=== PATIENT | female | born 1975 | race Caucasian/White ===

== ENCOUNTER 2016-11-07 11:54 | Inpatient (IN) | payer OTHER ==
[~2016-11-07] VITALS: Ht 170.2 cm; Wt 103.9 kg
[2016-11-07] VITALS (9 sets, daily range): BP systolic 100–118; BP diastolic 57–86; PULSE 94–104; TEMP 97.6–98.5
[2016-11-07 12:39] LABS: HEMATOCRIT 45.1 % (37.0-47.0); HEMOGLOBIN 14.2 g/dl (12.5-16.0); MEAN CELL VOLUME 85 fl (80.0-100.0); MEAN CORPUSCULAR HEMOGLOBIN 27 pg (27.0-31.0); MEAN CORPUSCULAR HGB CONC 32 g/dl (33.0-37.0); MEAN PLATELET VOLUME 8.9 fl (7.4-10.4); PLATELET COUNT 512 K/mm3 (130-400); RED BLOOD COUNT 5.33 M/mm3 (4.10-5.30); WHITE BLOOD COUNT 7.2 K/mm3 (4.8-10.8)
[2016-11-07 12:41] LABS: ADD PATHOLOGY DIFF REVIEW NO
[2016-11-07 12:51] LABS: ADJUSTED CALCIUM 9.4 mg/dL (8.4-10.2); ALBUMIN 4.1 gm/dL (3.5-5.0); BILIRUBIN,TOTAL 0.9 mg/dL (0.0-1.0); CALCIUM 9.5 mg/dL (8.4-10.2); CREATININE, serum 1.36 mg/dL (0.52-1.25); POTASSIUM 3.9 mmol/L (3.4-5.0); TOTAL PROTEIN 7.4 gm/dL (6.4-8.2)
[2016-11-07 14:57] LABS: BAND 21 % (0-10); BASOPHIL 1 % (0-2); METAMYELOCYTE 1 % (0-0); NEUTROPHILS 44 % (42.0-75.2); TOTAL CELLS COUNTED 100
[2016-11-07 14:58] LABS: ANISOCYTOSIS 1+
[2016-11-07] MEDS ORDERED: PRILOTC PO (19:29)
[2016-11-07] MEDS ORDERED: ADVIL200 MG PO (19:30)
[2016-11-07] MEDS ORDERED: ALEVE 220MG220 MG PO (19:31)
[2016-11-07 23:46] LABS: PH 5 (5-8); SQUAMOUS EPITHELIAL 0-2 /hpf; URINE APPEARANCE Hazy; URINE BACTERIA None Seen /hpf; URINE BILIRUBIN Negative (NEGATIVE); URINE BLOOD 2+ (NEGATIVE); URINE COLOR Yellow; URINE GLUCOSE Negative (NEGATIVE); URINE KETONE Trace (NEGATIVE); URINE RBC 20-50 /hpf; URINE UROBILINOGEN Negative (NEGATIVE)
[2016-11-08 01:37] VITALS: BP 132/79; PULSE 132; TEMP 99.7
[2016-11-08 05:14] VITALS: BP 131/85; PULSE 129; TEMP 99.3
[2016-11-08 08:30] LABS: HEMATOCRIT 37.4 % (37.0-47.0); MEAN CELL VOLUME 87 fl (80.0-100.0); MEAN CORPUSCULAR HGB CONC 31 g/dl (33.0-37.0); MEAN PLATELET VOLUME 9.1 fl (7.4-10.4); RED BLOOD COUNT 4.28 M/mm3 (4.10-5.30); REDCELL DISTRIBUTION WIDTH-CV 17.1 % (11.5-14.5); WHITE BLOOD COUNT 10.5 K/mm3 (4.8-10.8)
[2016-11-08 08:35] LABS: HEMOGLOBIN 11.5 g/dl (12.5-16.0); MEAN CORPUSCULAR HEMOGLOBIN 27 pg (27.0-31.0); PLATELET COUNT 394 K/mm3 (130-400)
[2016-11-08 08:46] LABS: CREATININE, serum 1.76 mg/dL (0.52-1.25); POTASSIUM 4.9 mmol/L (3.4-5.0)
[2016-11-08 10:52] VITALS: BP 127/85; PULSE 123; TEMP 101.1
[2016-11-08 13:45] VITALS: BP 139/87; PULSE 124; TEMP 98.3
[2016-11-08 17:27] VITALS: BP 158/90; PULSE 121; TEMP 98.7
[2016-11-08 22:08] VITALS: BP 124/80; PULSE 113; TEMP 99
[2016-11-09] VITALS (12 sets, daily range): BP systolic 140–180; BP diastolic 63–108; PULSE 121–142; TEMP 98.4–99
[2016-11-09 05:32] LABS: ADD PATHOLOGY DIFF REVIEW NO
[2016-11-09 05:46] LABS: CALCIUM 8.5 mg/dL (8.4-10.2); CREATININE, serum 1.11 mg/dL (0.52-1.25); POTASSIUM 4.8 mmol/L (3.4-5.0)
[2016-11-09 05:48] LABS: MEAN CELL VOLUME 89 fl (80.0-100.0); MEAN CORPUSCULAR HGB CONC 30 g/dl (33.0-37.0); MEAN PLATELET VOLUME 9.1 fl (7.4-10.4); RED BLOOD COUNT 6.28 M/mm3 (4.10-5.30); REDCELL DISTRIBUTION WIDTH-CV 17.9 % (11.5-14.5); WHITE BLOOD COUNT 6.7 K/mm3 (4.8-10.8)
[2016-11-09 05:49] LABS: HEMATOCRIT 55.9 % (37.0-47.0); HEMOGLOBIN 16.5 g/dl (12.5-16.0); MEAN CORPUSCULAR HEMOGLOBIN 26 pg (27.0-31.0); PLATELET COUNT 193 K/mm3 (130-400)
[2016-11-09 06:33] LABS: BAND 52 % (0-10); NEUTROPHILS 33 % (42.0-75.2); TOTAL CELLS COUNTED 100
[2016-11-10] VITALS (12 sets, daily range): BP systolic 156–184; BP diastolic 88–106; PULSE 72–126; TEMP 97.2–98.7
[2016-11-10 16:17] LABS: MEAN CELL VOLUME 90 fl (80.0-100.0); MEAN CORPUSCULAR HGB CONC 29 g/dl (33.0-37.0); MEAN PLATELET VOLUME 9.3 fl (7.4-10.4); RED BLOOD COUNT 3.56 M/mm3 (4.10-5.30); REDCELL DISTRIBUTION WIDTH-CV 16.4 % (11.5-14.5); WHITE BLOOD COUNT 8.7 K/mm3 (4.8-10.8)
[2016-11-10 16:19] LABS: HEMOGLOBIN 9.4 g/dl (12.5-16.0); MEAN CORPUSCULAR HEMOGLOBIN 26 pg (27.0-31.0); PLATELET COUNT 295 K/mm3 (130-400)
[2016-11-10 16:22] LABS: ADD PATHOLOGY DIFF REVIEW NO; CALCIUM 8.6 mg/dL (8.4-10.2); CREATININE, serum 0.87 mg/dL (0.52-1.25); PHOSPHOROUS 3.1 mg/dL (2.5-4.5)
[2016-11-10 17:00] LABS: BAND 14 % (0-10); EOSINOPHIL 1 % (0-4); NEUTROPHILS 70 % (42.0-75.2); TOTAL CELLS COUNTED 100
[2016-11-10 17:01] LABS: PLATELET ESTIMATE NORMAL (NORMAL)
[2016-11-10 17:02] LABS: ANISOCYTOSIS 1+; HYPOCHROMIA 3+
[2016-11-11] VITALS (922 sets, daily range): BP systolic 156–197; BP diastolic 89–108; PULSE 100–121; TEMP 98.2–101.5; O2SAT 75–100
[2016-11-11 06:35] LABS: MEAN CELL VOLUME 92 fl (80.0-100.0); MEAN CORPUSCULAR HGB CONC 28 g/dl (33.0-37.0); MEAN PLATELET VOLUME 9.8 fl (7.4-10.4); PLATELET COUNT 332 K/mm3 (130-400); RED BLOOD COUNT 3.58 M/mm3 (4.10-5.30); REDCELL DISTRIBUTION WIDTH-CV 16.4 % (11.5-14.5); WHITE BLOOD COUNT 8.5 K/mm3 (4.8-10.8)
[2016-11-11 06:41] LABS: ADJUSTED CALCIUM 9.7 mg/dL (8.4-10.2); ALBUMIN 2.6 gm/dL (3.5-5.0); BILIRUBIN,TOTAL 0.4 mg/dL (0.0-1.0); CALCIUM 8.6 mg/dL (8.4-10.2); CREATININE, serum 0.79 mg/dL (0.52-1.25); POTASSIUM 4.2 mmol/L (3.4-5.0); TOTAL PROTEIN 5.9 gm/dL (6.4-8.2)
[2016-11-11 06:52] LABS: HEMATOCRIT 32.8 % (37.0-47.0); HEMOGLOBIN 9.3 g/dl (12.5-16.0); MEAN CORPUSCULAR HEMOGLOBIN 26 pg (27.0-31.0)
[2016-11-11 06:53] LABS: ADD PATHOLOGY DIFF REVIEW NO
[2016-11-11 07:43] LABS: BAND 25 % (0-10); BASOPHIL 1 % (0-2); EOSINOPHIL 3 % (0-4); NEUTROPHILS 48 % (42.0-75.2); TOTAL CELLS COUNTED 100
[2016-11-11 07:47] LABS: HYPOCHROMIA 3+; PLATELET ESTIMATE NORMAL (NORMAL)
[2016-11-11 07:48] LABS: ANISOCYTOSIS 1+
[2016-11-11 07:54] LABS: ARTERIAL BLD GAS O2 SATURATION 96.4 % (92-100); ARTERIAL BLD GAS TCO2 CT 23.2; ARTERIAL BLOOD GAS BASE EXCESS -4.8 (-2-2); ARTERIAL BLOOD GAS HCO3 21.8 meq/L (22-26); ARTERIAL BLOOD GAS PO2 98.9 mmHg (80-100); ARTERIAL BLOOD GAS pH 7.28 (7.35-7.45); OXYHEMOGLOBIN 95.3 %
[2016-11-11 07:56] LABS: ATS? YES
[2016-11-11 09:40] LABS: CALCIUM 8.6 mg/dL (8.4-10.2); CREATININE, serum 0.75 mg/dL (0.52-1.25); POTASSIUM 4.1 mmol/L (3.4-5.0)
[2016-11-11 09:48] LABS: AMPHETAMINE URINE NEGATIVE; BARBITURATES URINE NEGATIVE; BENZODIAZEPINES URINE NEGATIVE; BUPRENORPHINE URINE NEGATIVE; METHADONE URINE NEGATIVE; OPIATES URINE NEGATIVE; OXYCODONE URINE NEGATIVE; PHENCYCLIDINE URINE NEGATIVE; PROPOXYPHENE URINE NEGATIVE; THC CANNABINOIDS URINE NEGATIVE
[2016-11-11 14:12] LABS: ALLEN TEST YES; ALLENS TEST RESULT PASS; ARTERIAL BLD GAS O2 SATURATION 96.5 % (92-100); ARTERIAL BLD GAS TCO2 CT 23.6; ARTERIAL BLOOD GAS BASE EXCESS -2.4 (-2-2); ARTERIAL BLOOD GAS HCO3 22.4 meq/L (22-26); ARTERIAL BLOOD GAS PO2 95.9 mmHg (80-100); ARTERIAL BLOOD GAS pH 7.38 (7.35-7.45); ATS? YES; OXYHEMOGLOBIN 95.9 %
[2016-11-11 19:43] LABS: ARTERIAL BLD GAS O2 SATURATION 95.4 % (92-100); ARTERIAL BLOOD GAS HCO3 25.9 meq/L (22-26); ARTERIAL BLOOD GAS PHT 7.46 C (7.35-7.45); ARTERIAL BLOOD GAS PO2 76.5 mmHg (80-100); ARTERIAL BLOOD GAS PO2T 76.5 (80-100); ARTERIAL BLOOD GAS pH 7.46 (7.35-7.45); OXYHEMOGLOBIN 94.4 %
[2016-11-11 19:44] LABS: ALLEN TEST YES; ALLENS TEST RESULT PASS; ATS? YES
[2016-11-11 20:46] LABS: ADJUSTED CALCIUM 9.6 mg/dL (8.4-10.2); ALBUMIN 2.6 gm/dL (3.5-5.0); BILIRUBIN,TOTAL 0.5 mg/dL (0.0-1.0); CALCIUM 8.5 mg/dL (8.4-10.2); CREATININE, serum 0.83 mg/dL (0.52-1.25); MAGNESIUM 1.9 mg/dL (1.6-2.3); PHOSPHOROUS 2.5 mg/dL (2.5-4.5); POTASSIUM 3.4 mmol/L (3.4-5.0)
[2016-11-11 22:06] LABS: PH 6 (5-8); SQUAMOUS EPITHELIAL 0-2 /hpf; URINE APPEARANCE Hazy; URINE BACTERIA None Seen /hpf; URINE BILIRUBIN Negative (NEGATIVE); URINE BLOOD 3+ (NEGATIVE); URINE COLOR Yellow; URINE GLUCOSE Negative (NEGATIVE); URINE KETONE Negative (NEGATIVE); URINE RBC >50 /hpf; URINE UROBILINOGEN Negative (NEGATIVE); URINE WBC 0-2 /hpf
[2016-11-12] VITALS (1397 sets, daily range): BP systolic 135–170; BP diastolic 86–100; PULSE 110–125; TEMP 98.2–101; O2SAT 79–100
[2016-11-12 04:15] LABS: ARTERIAL BLD GAS O2 SATURATION 96.4 % (92-100); ARTERIAL BLD GAS TCO2 CT 27.4; ARTERIAL BLOOD GAS BASE EXCESS 3.2 (-2-2); ARTERIAL BLOOD GAS HCO3 26.3 meq/L (22-26); ARTERIAL BLOOD GAS PO2 81.7 mmHg (80-100); ARTERIAL BLOOD GAS PO2T 81.7 (80-100); OXYHEMOGLOBIN 95.8 %
[2016-11-12 04:16] LABS: ALLEN TEST YES; ALLENS TEST RESULT PASS; ATS? YES
[2016-11-12 06:45] LABS: INR 1.4 (0.8-3.0); MEAN CELL VOLUME 88 fl (80.0-100.0); MEAN CORPUSCULAR HGB CONC 30 g/dl (33.0-37.0); MEAN PLATELET VOLUME 9.8 fl (7.4-10.4); PLATELET COUNT 334 K/mm3 (130-400); PROTHROMBIN TIME 15.2 SECONDS (9.7-12.8); RED BLOOD COUNT 3.68 M/mm3 (4.10-5.30); REDCELL DISTRIBUTION WIDTH-CV 16.3 % (11.5-14.5); WHITE BLOOD COUNT 6.9 K/mm3 (4.8-10.8)
[2016-11-12 06:46] LABS: HEMATOCRIT 32.4 % (37.0-47.0); HEMOGLOBIN 9.6 g/dl (12.5-16.0); MEAN CORPUSCULAR HEMOGLOBIN 26 pg (27.0-31.0)
[2016-11-12 06:47] LABS: ADD PATHOLOGY DIFF REVIEW NO
[2016-11-12 06:59] LABS: CALCIUM 8.8 mg/dL (8.4-10.2); CREATININE, serum 0.81 mg/dL (0.52-1.25); MAGNESIUM 1.8 mg/dL (1.6-2.3); PHOSPHOROUS 2.7 mg/dL (2.5-4.5); POTASSIUM 3.1 mmol/L (3.4-5.0)
[2016-11-12 07:29] LABS: BAND 16 % (0-10); EOSINOPHIL 1 % (0-4); NEUTROPHILS 60 % (42.0-75.2); TOTAL CELLS COUNTED 100
[2016-11-12 07:31] LABS: HYPOCHROMIA 3+
[2016-11-12 07:32] LABS: ANISOCYTOSIS 1+; PLATELET ESTIMATE NORMAL (NORMAL)
[2016-11-13] VITALS (1358 sets, daily range): BP systolic 122–140; BP diastolic 77–89; PULSE 110–121; TEMP 97.2–101.2; O2SAT 62–100
[2016-11-13 04:50] LABS: ADD PATHOLOGY DIFF REVIEW NO
[2016-11-13 04:53] LABS: MEAN CELL VOLUME 87 fl (80.0-100.0); MEAN CORPUSCULAR HGB CONC 30 g/dl (33.0-37.0); MEAN PLATELET VOLUME 9.5 fl (7.4-10.4); PLATELET COUNT 343 K/mm3 (130-400); RED BLOOD COUNT 3.79 M/mm3 (4.10-5.30); REDCELL DISTRIBUTION WIDTH-CV 16.5 % (11.5-14.5); WHITE BLOOD COUNT 7.4 K/mm3 (4.8-10.8)
[2016-11-13 05:15] LABS: INR 1.4 (0.8-3.0); PROTHROMBIN TIME 15.6 SECONDS (9.7-12.8)
[2016-11-13 05:16] LABS: ARTERIAL BLD GAS O2 SATURATION 91.9 % (92-100); ARTERIAL BLD GAS TCO2 CT 28.8; ARTERIAL BLOOD GAS BASE EXCESS 3.1 (-2-2); ARTERIAL BLOOD GAS HCO3 27.6 meq/L (22-26); ARTERIAL BLOOD GAS PHT 7.44 C (7.35-7.45); ARTERIAL BLOOD GAS PO2 67.4 mmHg (80-100); ARTERIAL BLOOD GAS PO2T 67.4 (80-100); ARTERIAL BLOOD GAS pH 7.44 (7.35-7.45); OXYHEMOGLOBIN 91.4 %
[2016-11-13 05:17] LABS: HEMATOCRIT 32.8 % (37.0-47.0); HEMOGLOBIN 9.9 g/dl (12.5-16.0); MEAN CORPUSCULAR HEMOGLOBIN 26 pg (27.0-31.0)
[2016-11-13 05:18] LABS: ALLEN TEST YES; ALLENS TEST RESULT PASS; ATS? YES
[2016-11-13 05:23] LABS: ADJUSTED CALCIUM 9.8 mg/dL (8.4-10.2); ALBUMIN 2.7 gm/dL (3.5-5.0); BILIRUBIN,TOTAL 0.4 mg/dL (0.0-1.0); CALCIUM 8.8 mg/dL (8.4-10.2); CREATININE, serum 0.85 mg/dL (0.52-1.25); MAGNESIUM 1.9 mg/dL (1.6-2.3); PHOSPHOROUS 4.8 mg/dL (2.5-4.5); POTASSIUM 3.5 mmol/L (3.4-5.0); TOTAL PROTEIN 6.6 gm/dL (6.4-8.2)
[2016-11-13 06:29] LABS: BAND 30 % (0-10); EOSINOPHIL 1 % (0-4); METAMYELOCYTE 2 % (0-0); NEUTROPHILS 42 % (42.0-75.2); PLATELET ESTIMATE NORMAL (NORMAL); TOTAL CELLS COUNTED 100
[2016-11-13 06:30] LABS: ROULEAUX 1+
[2016-11-13 17:36] LABS: PH 7 (5-8); SQUAMOUS EPITHELIAL 0-2 /hpf; URINE APPEARANCE Clear; URINE BACTERIA None Seen /hpf; URINE BILIRUBIN Negative (NEGATIVE); URINE BLOOD Negative (NEGATIVE); URINE COLOR Yellow; URINE GLUCOSE Negative (NEGATIVE); URINE KETONE Negative (NEGATIVE); URINE UROBILINOGEN Negative (NEGATIVE)
[2016-11-14] VITALS (1338 sets, daily range): BP systolic 139–164; BP diastolic 80–99; PULSE 113–122; TEMP 97.3–101.5; O2SAT 82–100
[2016-11-14 05:59] LABS: CALCIUM 8.2 mg/dL (8.4-10.2); CREATININE, serum 0.75 mg/dL (0.52-1.25); MAGNESIUM 1.9 mg/dL (1.6-2.3); PHOSPHOROUS 4.2 mg/dL (2.5-4.5); POTASSIUM 3.9 mmol/L (3.4-5.0)
[2016-11-14 10:06] LABS: MEAN CELL VOLUME 88 fl (80.0-100.0); MEAN CORPUSCULAR HGB CONC 30 g/dl (33.0-37.0); MEAN PLATELET VOLUME 10.7 fl (7.4-10.4); PLATELET COUNT 351 K/mm3 (130-400); RED BLOOD COUNT 3.43 M/mm3 (4.10-5.30); WHITE BLOOD COUNT 7.8 K/mm3 (4.8-10.8)
[2016-11-14 10:08] LABS: HEMATOCRIT 30.3 % (37.0-47.0); MEAN CORPUSCULAR HEMOGLOBIN 26 pg (27.0-31.0)
[2016-11-14 10:09] LABS: ADD PATHOLOGY DIFF REVIEW NO
[2016-11-14 10:40] LABS: INR 1.3 (0.8-3.0)
[2016-11-14 14:52] LABS: BAND 49 % (0-10); EOSINOPHIL 3 % (0-4); METAMYELOCYTE 2 % (0-0); NEUTROPHILS 25 % (42.0-75.2); PLATELET ESTIMATE NORMAL (NORMAL); TOTAL CELLS COUNTED 100
[2016-11-14 14:55] LABS: HYPOCHROMIA 2+
[2016-11-14 14:56] LABS: ANISOCYTOSIS 1+
[2016-11-14 14:57] LABS: POLYCHROMASIA 1+
[2016-11-14 14:59] LABS: TOXIC GRANULATION PRESENT
[2016-11-15] VITALS (924 sets, daily range): BP systolic 135–160; BP diastolic 74–93; PULSE 110–134; TEMP 97.4–101.6; O2SAT 68–100
[2016-11-15 05:19] LABS: CALCIUM 8.3 mg/dL (8.4-10.2); CREATININE, serum 0.64 mg/dL (0.52-1.25); MAGNESIUM 2.1 mg/dL (1.6-2.3); POTASSIUM 4.3 mmol/L (3.4-5.0)
[2016-11-15 09:49] LABS: HEMATOCRIT 29.6 % (37.0-47.0); HEMOGLOBIN 8.7 g/dl (12.5-16.0); MEAN CELL VOLUME 88 fl (80.0-100.0); MEAN CORPUSCULAR HEMOGLOBIN 26 pg (27.0-31.0); MEAN CORPUSCULAR HGB CONC 29 g/dl (33.0-37.0); MEAN PLATELET VOLUME 11.1 fl (7.4-10.4); PLATELET COUNT 385 K/mm3 (130-400); RED BLOOD COUNT 3.37 M/mm3 (4.10-5.30); REDCELL DISTRIBUTION WIDTH-CV 16.9 % (11.5-14.5); WHITE BLOOD COUNT 8.8 K/mm3 (4.8-10.8)
[2016-11-15 09:50] LABS: ADD PATHOLOGY DIFF REVIEW NO
[2016-11-15 10:26] LABS: BAND 30 % (0-10); EOSINOPHIL 3 % (0-4); NEUTROPHILS 53 % (42.0-75.2); TOTAL CELLS COUNTED 100
[2016-11-15 10:29] LABS: HYPOCHROMIA 3+
[2016-11-15 10:31] LABS: ANISOCYTOSIS 1+; PLATELET ESTIMATE NORMAL (NORMAL)
[2016-11-16] VITALS (432 sets, daily range): BP systolic 130–153; BP diastolic 78–92; PULSE 110–118; TEMP 98.6–103.1; O2SAT 75–100
[2016-11-16 09:29] LABS: MEAN CELL VOLUME 85 fl (80.0-100.0); MEAN CORPUSCULAR HGB CONC 31 g/dl (33.0-37.0); MEAN PLATELET VOLUME 10.2 fl (7.4-10.4); PLATELET COUNT 402 K/mm3 (130-400); RED BLOOD COUNT 3.05 M/mm3 (4.10-5.30); REDCELL DISTRIBUTION WIDTH-CV 16.9 % (11.5-14.5); WHITE BLOOD COUNT 9.8 K/mm3 (4.8-10.8)
[2016-11-16 09:30] LABS: HEMATOCRIT 25.9 % (37.0-47.0); HEMOGLOBIN 7.9 g/dl (12.5-16.0); MEAN CORPUSCULAR HEMOGLOBIN 26 pg (27.0-31.0)
[2016-11-16 09:31] LABS: ADD PATHOLOGY DIFF REVIEW NO
[2016-11-16 09:44] LABS: CREATININE, serum 0.59 mg/dL (0.52-1.25); POTASSIUM 3.5 mmol/L (3.4-5.0)
[2016-11-16 10:07] LABS: BAND 12 % (0-10); EOSINOPHIL 1 % (0-4); NEUTROPHILS 66 % (42.0-75.2); PLATELET ESTIMATE NORMAL (NORMAL); POLYCHROMASIA 1+; TOTAL CELLS COUNTED 100
[2016-11-17] VITALS (476 sets, daily range): BP systolic 122–154; BP diastolic 69–95; PULSE 97–127; TEMP 98.6–100.7; O2SAT 51–99
[2016-11-17 04:18] LABS: MEAN CELL VOLUME 83 fl (80.0-100.0); MEAN CORPUSCULAR HGB CONC 31 g/dl (33.0-37.0); MEAN PLATELET VOLUME 10.6 fl (7.4-10.4); PLATELET COUNT 499 K/mm3 (130-400); RED BLOOD COUNT 3.06 M/mm3 (4.10-5.30); REDCELL DISTRIBUTION WIDTH-CV 16.6 % (11.5-14.5); WHITE BLOOD COUNT 9.8 K/mm3 (4.8-10.8)
[2016-11-17 04:22] LABS: ADD PATHOLOGY DIFF REVIEW NO; HEMATOCRIT 25.5 % (37.0-47.0); HEMOGLOBIN 7.8 g/dl (12.5-16.0); MEAN CORPUSCULAR HEMOGLOBIN 25 pg (27.0-31.0)
[2016-11-17 04:33] LABS: ADJUSTED CALCIUM 9.2 mg/dL (8.4-10.2); ALBUMIN 2.6 gm/dL (3.5-5.0); BILIRUBIN,TOTAL 0.3 mg/dL (0.0-1.0); CALCIUM 8.1 mg/dL (8.4-10.2); CREATININE, serum 0.56 mg/dL (0.52-1.25); MAGNESIUM 1.8 mg/dL (1.6-2.3); PHOSPHOROUS 2.8 mg/dL (2.5-4.5); POTASSIUM 3.6 mmol/L (3.4-5.0); TOTAL PROTEIN 6.4 gm/dL (6.4-8.2)
[2016-11-17 05:13] LABS: BAND 20 % (0-10); EOSINOPHIL 1 % (0-4); NEUTROPHILS 55 % (42.0-75.2); TOTAL CELLS COUNTED 100
[2016-11-17 10:32] LABS: INR 1.3 (0.8-3.0)
[2016-11-17 14:37] LABS: GLUCOSE,PLEURAL FLUID 109 mg/dL
[2016-11-17 14:58] LABS: PLEURAL FLUID - PMN 33.6 % (0-25)
[2016-11-17 14:59] LABS: PLEURAL FLUID RIGHT SIDE; PLEURAL FLUID COLOR PINK
[2016-11-17 15:00] LABS: PLEURAL FLUID APPEARANCE HAZY
[2016-11-17 15:53] LABS: CALCIUM 7.7 mg/dL (8.4-10.2); CREATININE, serum 0.57 mg/dL (0.52-1.25); POTASSIUM 3.9 mmol/L (3.4-5.0)
[2016-11-18] VITALS (1245 sets, daily range): BP systolic 107–143; BP diastolic 63–95; PULSE 102–123; TEMP 97.9–99.3; O2SAT 55–100
[2016-11-18 08:58] LABS: CALCIUM 7.7 mg/dL (8.4-10.2); CREATININE, serum 0.65 mg/dL (0.52-1.25); POTASSIUM 3.6 mmol/L (3.4-5.0)
[2016-11-18 09:19] LABS: VANCOMYCIN TROUGH 17.93 ug/mL (7.00-20.00)
[2016-11-18 18:34] LABS: CALCIUM 7.1 mg/dL (8.4-10.2); CREATININE, serum 0.63 mg/dL (0.52-1.25)
[2016-11-19] VITALS (1357 sets, daily range): BP systolic 99–128; BP diastolic 66–78; PULSE 110–123; TEMP 97.6–99; O2SAT 49–100
[2016-11-19 08:00] LABS: ADJUSTED CALCIUM 8.8 mg/dL (8.4-10.2); ALBUMIN 2.9 gm/dL (3.5-5.0); BILIRUBIN,TOTAL 0.5 mg/dL (0.0-1.0); CALCIUM 7.9 mg/dL (8.4-10.2); CREATININE, serum 0.75 mg/dL (0.52-1.25); MAGNESIUM 1.8 mg/dL (1.6-2.3); PHOSPHOROUS 5.6 mg/dL (2.5-4.5); TOTAL PROTEIN 7.1 gm/dL (6.4-8.2)
[2016-11-19 08:21] LABS: POTASSIUM 2.9 mmol/L (3.4-5.0)
[2016-11-19 09:57] LABS: VENOUS BLOOD GAS BE 15.1 (-4-4)
[2016-11-19 09:58] LABS: VENOUS BLOOD GAS SITE VENIPUNCTURE
[2016-11-19 13:59] LABS: MEAN CELL VOLUME 82 fl (80.0-100.0); MEAN CORPUSCULAR HGB CONC 32 g/dl (33.0-37.0); MEAN PLATELET VOLUME 10.3 fl (7.4-10.4); RED BLOOD COUNT 2.98 M/mm3 (4.10-5.30); REDCELL DISTRIBUTION WIDTH-CV 16.8 % (11.5-14.5)
[2016-11-19 14:02] LABS: HEMATOCRIT 24.4 % (37.0-47.0); HEMOGLOBIN 7.7 g/dl (12.5-16.0); MEAN CORPUSCULAR HEMOGLOBIN 26 pg (27.0-31.0); PLATELET COUNT 814 K/mm3 (130-400)
[2016-11-19 14:03] LABS: ADD PATHOLOGY DIFF REVIEW NO
[2016-11-19 14:15] LABS: BAND 10 % (0-10); NEUTROPHILS 63 % (42.0-75.2); TOTAL CELLS COUNTED 100
[2016-11-19 14:16] LABS: PLATELET ESTIMATE INCREASED (NORMAL)
[2016-11-19 14:17] LABS: HYPOCHROMIA 2+; STOMATOCYTE 2+
[2016-11-19 14:47] LABS: ADJUSTED CALCIUM 8.9 mg/dL (8.4-10.2); BILIRUBIN,TOTAL 0.4 mg/dL (0.0-1.0); CALCIUM 8.1 mg/dL (8.4-10.2); CREATININE, serum 0.88 mg/dL (0.52-1.25); POTASSIUM 3.6 mmol/L (3.4-5.0); TOTAL PROTEIN 7.3 gm/dL (6.4-8.2)
[2016-11-20] VITALS (526 sets, daily range): BP systolic 101–122; BP diastolic 59–78; PULSE 65–108; TEMP 09.7; O2SAT 86–100
[2016-11-20 06:46] LABS: MEAN CELL VOLUME 81 fl (80.0-100.0); MEAN CORPUSCULAR HGB CONC 32 g/dl (33.0-37.0); MEAN PLATELET VOLUME 10.7 fl (7.4-10.4); REDCELL DISTRIBUTION WIDTH-CV 16.7 % (11.5-14.5)
[2016-11-20 06:48] LABS: HEMATOCRIT 22.8 % (37.0-47.0); HEMOGLOBIN 7.2 g/dl (12.5-16.0); MEAN CORPUSCULAR HEMOGLOBIN 26 pg (27.0-31.0); PLATELET COUNT 712 K/mm3 (130-400)
[2016-11-20 06:52] LABS: CALCIUM 7.9 mg/dL (8.4-10.2); CREATININE, serum 0.86 mg/dL (0.52-1.25); POTASSIUM 3.1 mmol/L (3.4-5.0)
[2016-11-21] VITALS (8 sets, daily range): BP systolic 104–126; BP diastolic 55–79; PULSE 88–102; TEMP 97.9–99.3
[2016-11-21 09:20] LABS: ADD PATHOLOGY DIFF REVIEW NO
[2016-11-21 09:36] LABS: MEAN CELL VOLUME 83 fl (80.0-100.0); MEAN CORPUSCULAR HGB CONC 31 g/dl (33.0-37.0); MEAN PLATELET VOLUME 10.1 fl (7.4-10.4); RED BLOOD COUNT 3.13 M/mm3 (4.10-5.30); REDCELL DISTRIBUTION WIDTH-CV 16.8 % (11.5-14.5); WHITE BLOOD COUNT 5.4 K/mm3 (4.8-10.8)
[2016-11-21 09:41] LABS: CALCIUM 8.1 mg/dL (8.4-10.2); CREATININE, serum 0.89 mg/dL (0.52-1.25); MAGNESIUM 2.2 mg/dL (1.6-2.3); POTASSIUM 3.1 mmol/L (3.4-5.0)
[2016-11-21 09:42] LABS: HEMOGLOBIN 8.1 g/dl (12.5-16.0); MEAN CORPUSCULAR HEMOGLOBIN 26 pg (27.0-31.0); PLATELET COUNT 922 K/mm3 (130-400)
[2016-11-21 09:50] LABS: BAND 4 % (0-10); NEUTROPHILS 66 % (42.0-75.2); PLATELET ESTIMATE INCREASED (NORMAL); TOTAL CELLS COUNTED 100
[2016-11-22 01:57] VITALS: BP 127/83; PULSE 104; TEMP 97.7
[2016-11-22 04:51] VITALS: BP 122/74; PULSE 96; TEMP 98.3
[2016-11-22 07:20] LABS: ADD PATHOLOGY DIFF REVIEW NO
[2016-11-22 07:25] LABS: MEAN CELL VOLUME 84 fl (80.0-100.0); MEAN CORPUSCULAR HGB CONC 31 g/dl (33.0-37.0); MEAN PLATELET VOLUME 10.2 fl (7.4-10.4); PLATELET COUNT 930 K/mm3 (130-400); RED BLOOD COUNT 3.35 M/mm3 (4.10-5.30); REDCELL DISTRIBUTION WIDTH-CV 17.2 % (11.5-14.5); WHITE BLOOD COUNT 5.6 K/mm3 (4.8-10.8)
[2016-11-22 07:55] LABS: HEMATOCRIT 28.2 % (37.0-47.0); HEMOGLOBIN 8.8 g/dl (12.5-16.0); MEAN CORPUSCULAR HEMOGLOBIN 26 pg (27.0-31.0)
[2016-11-22 07:58] LABS: CALCIUM 8.5 mg/dL (8.4-10.2); CREATININE, serum 0.9 mg/dL (0.52-1.25); MAGNESIUM 2.3 mg/dL (1.6-2.3); POTASSIUM 3.8 mmol/L (3.4-5.0)
[2016-11-22 09:09] LABS: ANISOCYTOSIS 1+; BAND 30 % (0-10); NEUTROPHILS 40 % (42.0-75.2); PLATELET ESTIMATE INCREASED (NORMAL); TOTAL CELLS COUNTED 100
[2016-11-22 10:09] VITALS: BP 110/81; PULSE 108; TEMP 98.6
[2016-11-22 13:56] VITALS: BP 118/76; PULSE 103; TEMP 98
[2016-11-22 17:26] VITALS: BP 133/82; PULSE 104; TEMP 99
[2016-11-22 17:54] LABS: CALCIUM 8.4 mg/dL (8.4-10.2); CREATININE, serum 0.92 mg/dL (0.52-1.25); MAGNESIUM 2.2 mg/dL (1.6-2.3); POTASSIUM 3.5 mmol/L (3.4-5.0)
[2016-11-22 22:15] VITALS: BP 117/70; PULSE 104; TEMP 98.7
[2016-11-23 06:01] VITALS: BP 111/56; PULSE 101; TEMP 98.3
[2016-11-23 07:39] LABS: BASO % 0.7 % (0.0-2.0); EOS # 0.1 (0.0-0.7); EOS % 2.5 % (0-4.0); GRAN # 3.9 (1.4-6.5); GRAN % 68.8 % (42.2-75.2); LYMPH # 1.1 (1.2-3.4); LYMPH % 18.8 % (20.0-51.0); MEAN CELL VOLUME 85 fl (80.0-100.0); MEAN CORPUSCULAR HGB CONC 31 g/dl (33.0-37.0); MEAN PLATELET VOLUME 9.9 fl (7.4-10.4); MONO # 0.5 (0.1-0.6); MONO % 8.7 % (1.7-9.3); PLATELET COUNT 861 K/mm3 (130-400); RED BLOOD COUNT 3.33 M/mm3 (4.10-5.30); REDCELL DISTRIBUTION WIDTH-CV 17.7 % (11.5-14.5); WHITE BLOOD COUNT 5.6 K/mm3 (4.8-10.8)
[2016-11-23 07:40] LABS: HEMATOCRIT 28.3 % (37.0-47.0); HEMOGLOBIN 8.7 g/dl (12.5-16.0); MEAN CORPUSCULAR HEMOGLOBIN 26 pg (27.0-31.0)
[2016-11-23 07:45] LABS: CALCIUM 8.4 mg/dL (8.4-10.2); CREATININE, serum 1.1 mg/dL (0.52-1.25); MAGNESIUM 1.8 mg/dL (1.6-2.3)
[2016-11-23 08:01] LABS: POTASSIUM 2.8 mmol/L (3.4-5.0)
[2016-11-23 09:30] VITALS: BP 111/68; PULSE 109; TEMP 98.9
[2016-11-23 13:55] VITALS: BP 100/67; PULSE 104; TEMP 98.7
[2016-11-23 18:27] LABS: ADJUSTED CALCIUM 9.3 mg/dL (8.4-10.2); ALBUMIN 2.9 gm/dL (3.5-5.0); BILIRUBIN,TOTAL 0.6 mg/dL (0.0-1.0); CALCIUM 8.4 mg/dL (8.4-10.2); CREATININE, serum 1.07 mg/dL (0.52-1.25); POTASSIUM 3.7 mmol/L (3.4-5.0); TOTAL PROTEIN 7.7 gm/dL (6.4-8.2)
[2016-11-23 18:28] VITALS: BP 98/71; PULSE 104; TEMP 99.2
[2016-11-23 20:54] VITALS: BP 120/74; PULSE 101; TEMP 98.2
[2016-11-23 22:25] LABS: CALCIUM 8.7 mg/dL (8.4-10.2); CREATININE, serum 1.17 mg/dL (0.52-1.25); POTASSIUM 3.8 mmol/L (3.4-5.0)
[2016-11-24] VITALS (7 sets, daily range): BP systolic 98–132; BP diastolic 32–84; PULSE 86–107; TEMP 97.8–98.7
[2016-11-24 07:43] LABS: CALCIUM 8.6 mg/dL (8.4-10.2); CREATININE, serum 1.19 mg/dL (0.52-1.25); POTASSIUM 3.3 mmol/L (3.4-5.0)
[2016-11-25 01:46] VITALS: BP 120/74; PULSE 101; TEMP 98
[2016-11-25 05:11] VITALS: BP 116/72; PULSE 104; TEMP 98.6
[2016-11-25 08:21] LABS: POTASSIUM 3.5 mmol/L (3.4-5.0)
[2016-11-25 09:06] LABS: CREATININE, serum 1.32 mg/dL (0.52-1.25)
[2016-11-25 09:47] VITALS: BP 118/81; PULSE 106; TEMP 98.1
[2016-11-25 13:36] VITALS: BP 111/74; PULSE 103; TEMP 98.4
[2016-11-25 17:39] VITALS: BP 116/71; PULSE 102; TEMP 98.8
[2016-11-25 21:59] VITALS: BP 117/74; PULSE 103; TEMP 98.5
[2016-11-26 02:15] VITALS: BP 124/64; PULSE 96; TEMP 98
[2016-11-26 06:27] VITALS: BP 122/75; BP 128/47; PULSE 104; PULSE 66; TEMP 97.8; TEMP 99.7
[2016-11-26 10:09] VITALS: BP 111/82; PULSE 116; TEMP 98.8
[2016-11-26 10:56] LABS: CALCIUM 8.8 mg/dL (8.4-10.2); CREATININE, serum 1.22 mg/dL (0.52-1.25); POTASSIUM 3.2 mmol/L (3.4-5.0)
[2016-11-26] MEDS ORDERED: K-TAB20 PO (11:05)
[2016-11-26] MEDS ORDERED: ALDACTONE50 MG PO (11:05)
[2016-11-26] MEDS ORDERED: VERAPAMIL180 MG/TAB PO (11:05)
[2016-11-26] MEDS ORDERED: NORCO 325 MG-51 TAB PO (11:05)
[2016-11-26] MEDS ORDERED: PROTONIX 40MG T40 MG PO (11:05)
[2016-11-26] MEDS ORDERED: MAG-OX 400400 MG/TAB PO (11:05)
[2016-11-26] MEDS ORDERED: FLAGYL500 MG PO (11:05)
[2016-11-26] MEDS ORDERED: DEMADEX 20MG20 M1 PO (11:05)
[2016-11-26] MEDS ORDERED: FERROUS SU325 MG/TAB PO (11:05)
[2016-11-26] MEDS ORDERED: CIPRO 500MG TA500 MG PO (11:05)
[2016-11-26 14:13] VITALS: BP 81/64; PULSE 103; TEMP 98.2
[2016-11-26 14:58] VITALS: BP 118/69
== END 2016-11-26 15:20 | disposition home or self-care (01) | DRG 329 ==
LOC: COL.ER 11:54 → SURG 13:37 → ICU 11-11 07:51 → SURG 11-20 12:03
PROVIDERS: Emergency Medicine; Family Medicine; Internal Medicine; Internal Medicine Cardiovascular Disease; Internal Medicine Critical Care Medicine; Internal Medicine Infectious Disease; Internal Medicine Pulmonary Disease; Nurse Practitioner; Nurse Practitioner Family; Surgery
PROC: 0DU907Z Supplement Duodenum with Autologous Tissue Substitute, Open Approach (ICD-10-PCS; principal; 2016-11-07 14:43)
PROC: 0DBS0ZZ (ICD-10-PCS; 2016-11-07 14:43)
PROC: 0W9G30Z Drainage of Peritoneal Cavity with Drainage Device, Percutaneous Approach (ICD-10-PCS; 2016-11-14)
PROC: 0W993ZX Drainage of Right Pleural Cavity, Percutaneous Approach, Diagnostic (ICD-10-PCS; 2016-11-16)
DX: K26.1 Acute duodenal ulcer with perforation (principal); J96.02 Acute respiratory failure with hypercapnia; K65.8 Other peritonitis; I50.33 Acute on chronic diastolic (congestive) heart failure; J96.01 Acute respiratory failure with hypoxia; E87.2 Acidosis; J90 Pleural effusion, not elsewhere classified; E87.0 Hyperosmolality and hypernatremia; Z68.41 Body mass index [BMI] 40.0-44.9, adult; J98.11 Atelectasis; E87.3 Alkalosis; K91.3 Postprocedural intestinal obstruction; N17.9 Acute kidney failure, unspecified; M06.9 Rheumatoid arthritis, unspecified; Z87.891 Personal history of nicotine dependence; Z79.1 Long term (current) use of non-steroidal anti-inflammatories (NSAID); E87.8 Other disorders of electrolyte and fluid balance, not elsewhere classified; E66.01 Morbid (severe) obesity due to excess calories; I11.0 Hypertensive heart disease with heart failure; E87.6 Hypokalemia
CPT/HCPCS: 99222; 99232-AI; 99233-AI; 99239; A4217; A4315; A9284; B4178; C1751; C9113; J0330; J0348; J0360; J0610; J0692; J0694; J1100; J1120; J1170; J1450; J1644; J1650; J1815; J1940; J2185; J2250; J2270; J2310; J2370; J2405; J2543; J2704; J2710; J2765; J2795; J3010; J3370; J3475; J3480; J7030; J7040; J7042; J7050; J7060; J7120; J7131; P9016; Q9967